=== PATIENT | female | born 1990 | race Caucasian/White ===

== ENCOUNTER 2018-10-01 09:57 | Inpatient (IN) | payer BC ==
[2018-10-01] MEDS ORDERED: Lactated Ringer's 1,000 ML IV ONE (11:32)
[2018-10-01] MEDS: Lactated Ringer's 1,000 ML IV SCH ×2 (11:45→12:46)
[2018-10-01 12:22] LABS: BASO % 0.1 % (0.0-2.0); EOS % 0.2 % (0.0-4.0); HEMOGLOBIN 12.4 g/dL (11.0-16.0); LYMPH # 1.4 K/uL (1.0-4.3); LYMPH % 9.6 % (20.0-40.0); MEAN CELL VOLUME 86.7 fL (81.0-99.0); MEAN CORPUSCULAR HEMOGLOBIN 27.9 pg (27.0-31.0); MEAN CORPUSCULAR HGB CONC 32.2 g/dL (33.0-37.0); MEAN PLATELET VOLUME 10.8 fL (7.2-11.7); NEUT # 11.8 K/uL (1.8-7.0); NEUT % 83.1 % (50.0-75.0); NRBC % 0.1 % (0.0-2.0); PLATELET COUNT 205 K/uL (130-400); RBC 4.45 Mil/uL (3.80-5.20); RED CELL DISTRIBUTION WIDTH 15.6 % (11.5-14.5); WHITE BLOOD COUNT 14.2 K/uL (4.8-10.8)
[2018-10-01 12:25] LABS: SQUAMOUS EPITHIAL 2 /hpf (0-5); URINE BILIRUBIN NEGATIVE (NEGATIVE); URINE BLOOD NEGATIVE (NEGATIVE); URINE CLARITY Clear (Clear); URINE COLOR Yellow (YELLOW); URINE GLUCOSE (UA) NORMAL (Normal); URINE LEUKOCYTE ESTERASE NEG Leu/uL (Negative); URINE PROTEIN NEGATIVE (NEGATIVE); URINE UROBILINOGEN NORMAL mg/dL (0.2-1.0)
[2018-10-01 12:31] LABS: ALB/GLOB RATIO 1.3 (1.0-2.1); ALBUMIN 4.2 g/dL (3.5-5.0); ALT/SGPT 10 U/L (9-52); AST/SGOT 28 U/L (14-36); BLOOD UREA NITROGEN 8 mg/dL (7-17); CALCIUM 9.3 mg/dl (8.6-10.4); GFR NON-AFRICAN AMERICAN > 60
[2018-10-01 12:47] LABS: BANDS 1 % (0-2); LYMPHOCYTE 11 % (20-40); MONOCYTE 5 % (0-10); NEUTROPHIL 83 % (50-75); PLATELET ESTIMATE NORMAL (NORMAL); TOTAL CELLS COUNTED 100
[2018-10-01 12:49] LABS: PLATELET CLUMPS PRESENT
[2018-10-01 13:02] LABS: HEPATITIS B SURFACE AG Negative (NEGATIVE)
--- NOTE | 2018-10-01 14:16 | OBADHP ---
Datetime: 10/01/2018 14:15 Vital Signs Provider: Reviewed; Within Normal Limits Datetime: 10/01/2018 11:20 Admit Comment, IP Provider: Patient is a 28 y/o female with single intrauterine at 40 .1 weeks presenting for evaluation of contractions and associated pain. She began experiencing the co ntractions and pain at 2:00 am this morning that have since become more frequent and intense. She rat es her pain at 7.5/10 currently. Patient reports that she passed vaginal blood tinged jelly like subs tance in the morning. She expresses that she continues to feel the baby moving. Patient denies headch ae, nausea, vomitting, dysuria, and vaginal leakage of fluid/blood. [employer] IN[employer]ER Hx: , LMP 12/24/17, ASHKAN 09/30/18, denies STIs, last pap normal 02/20 Menstrual Hx: menarche 14yo, interval 28 days, duration 7 days, normal flow PMHx: Denies PSHx: Denies: FMHx: Mother and Father alive, history of DM in family. Medications: vitamins Allergies: Shellfish Social: Patient denies tobacco use, patient drinks socially on weekends but has not had any alcoho l since finding out she is , denies illicit drug use Vitals: reviewed, stable and WNL PE: As stated FHM: reviewed, WNL A/P 28 year old female @40.1 wks Admit for expected vaginal delivery Labs ECFM/TOCO IVF NPO GBS status: f/u with Dr. Marin Blood type: B+ Encourage ambulation Discussed with Dr. Alejandro Lincoln PGY-1, Ang Delarosa OMS-III pt seen and examined admit for labor pain magnmetn Pelvic Type - PN: Adequate Extremities - PN: Normal Abdomen - PN: Normal Back - PN: Not Done Breast - PN: Not Done Lungs - PN: Normal Heart - PN: Normal Thyroid - PN: Normal Neurologic - PN: Normal HEENT - PN: Normal General - PN: Normal Presentation-Admit: Vertex FHR - Baseline A Provider: 145 Membranes, Provider: Intact Contraction Comments Provider: irregular Comments, ACOG Physical Exam: Gen: NAD Cardio: RRR, no MGR Pulm: CTA B/L Abd: soft, fundal height 36cm, non tender to palpation, striae, linea nigra : dilated 4cm, effacement 80%, station -2 Ext: no edema, cyanosis Gestation - Est Wks by US: 40.1 Pool Provider: Negative IP Hx Assessment: The History has been Reviewed and is Current IP Chief Complaint: Uterine contractions; Maternal discomfort NICHD Variability Prov Fetus A: Moderate 6-25bpm NICHD Accel Fetus A IP Provider: [id number] FHR Category Provider Fetus A: Category I NICHD Decel Fetus A IP Provider: Early Dilatation, Provider: 4 Effacement, Provider: 80 Station, Provider: -2 Genitourinary Exam: Normal DTRs - PN: Not Done EGA AdmitDate IP: 40.1 IP Adm Impression: Term, intrauterine ; Intact Membranes IP Admit Plan: Admit to unit; Initiate labor protocol
--- NOTE | 2018-10-01 14:23 | OBPN ---
Datetime: 10/01/2018 14:15 IP Progress Impression: Normal progression of labor Membranes, Provider: Ruptured Amniotic Fluid Color, Provider: Meconium, Heavy FHR - Baseline A Provider: 150 Gestation - Est Wks by US: 40.1 Presentation-Admit: Vertex IP Progress Note Comment: pt seen and examined and noted ot have fluid noted on her perienum. Pt [place] aiend c/o ctx pain does not want pain medication. VS VE: 5/80/-2 SROM Meconium noted EFM: 150/mod eli TOCO: q 2-3 min A/P @ 40 + wks in labor, meconium -pt counsled on meconium asprination syndrome, meconium -pt coulsend on progresion of labr -pain managment discussed with patient, declined -will reevalte pt Vital Signs Provider: Reviewed; Within Normal Limits FHR Category Provider Fetus A: Category I NICHD Variability Prov Fetus A: Moderate 6-25bpm Dilatation, Provider: 5 Effacement, Provider: 80 Station, Provider: -2 NICHD Decel Fetus A IP Provider: None Datetime: 10/01/2018 11:20 Pool Provider: Negative Contraction Comments Provider: irregular NICHD Accel Fetus A IP Provider: [id number]
[2018-10-01] MEDS ORDERED: Lidocaine Hydrochloride 5 ML INJ ONE (15:45)
[2018-10-01] MEDS ORDERED: Oxycodone/Acetaminophen 5/325 mg Tab PO PRN ×2 (16:42)
[2018-10-01] MEDS ORDERED: Benzocaine/Menthol 20%-0.5% Topical Spray (60 ml) TOP PRN (16:42)
--- NOTE | 2018-10-01 16:57 | OBDS ---
DELIVERY PERSONNEL Delivery Doctor: Iraida Marin MD Pipe Smoking Machine Offbearer: Marielos Barreto RN MATERNAL INFORMATION Delivery Anesthesia: Local Estimated Blood Loss (ml): 300 Placenta Cultured: Yes Maternal Complications: None RN Comments: liveborn baby boy via nsd Provider Comments: pt was fully dilated and pushing. Atruamtic, spontaneous delivery of head, nuchal cord x1 and on body. Cord loosened. Atruatmic, spontaneo delivery of atnerio followed by posteior sh oulder followed by deliver of body. Both oral and nasal passages of the baby were bulb suctioned. umb ilical cord was clamped and cut. baby handed to mother on abodmen with rn kirstin. cord blood and c ord gases collected and sent x 2. Fundus Firm. Manual removal o fplacenta. Fundus firm, good hemsotai s,periurethral laceration noted and repaired with 3-0 chormic. good hemostaiss, no complicaitns live male cephalic presntation agpars 9,9 ebl 300ml LABOR SUMMARY EDC: 09/30/2018 00:00 No. Babies in Womb: 1 Attempted: No Labor Anesthesia: None LABOR INFORMATION Reason for Induction: Not Applicable Onset of Labor: 10/01/2018 02:00 Complete Dilatation: 10/01/2018 15:20 Oxytocin: N/A Group B Beta Strep: Negative Steroids Given: None Reason Steroids Not Administered: Not Applicable MEMBRANES Membranes Rupture Method: Spontaneous Rupture of Membranes: 10/01/2018 13:30 Length of Rupture (hrs): 2.15 Amniotic Fluid Color: Heavy Meconium Amniotic Fluid Amount: Moderate Amniotic Fluid Odor: None STAGES OF LABOR Stage 1 hrs: 13 Stage 1 min: 20 Stage 2 hrs: 0 Stage 2 min: 19 Stage 3 hrs: 0 Stage 3 min: 13 Total Time in Labor hrs: 13 Total Time in Labor min: 52 VAGINAL DELIVERY Episiotomy: None Laceration Type: Periurethral Other Laceration: periuretheral tear Laceration Repair: Yes Initial Vag Sponge Count: 20 Final Vag Sponge Count: 20 Initial Vag Sharps Count: 1 Final Vag Sharps Count: 1 Sponge Count Correct: Yes Sharps Count Correct: Yes BABY A INFORMATION Delivery Date/Time: 10/01/2018 15:39 Method of Delivery: Vaginal Born in Route : No : N/A Forceps: N/A Vacuum Extraction: N/A Shoulder Dystocia : No SHOULDER DYSTOCIA BABY A Delivery Date/Time: 10/01/2018 15:39 PRESENTATION/POSITION BABY A Presentation: Cephalic Cephalic Presentation: Vertex Vertex Position: Right Occipital Anterior Breech Presentation: N/A PLACENTA INFORMATION BABY A Placenta Delivery Time : 10/01/2018 15:52 Placenta Method of Delivery: Spontaneous Placenta Status: Delivered SCORES BABY A Heart Rate 1 min: >100 bpm Resp Effort 1 min: Good Cry Reflex Irritability 1 min: Cough or Sneeze or Pulls Away Muscle Tone 1 min: Active Motion Color 1 min: Body [place], Extremities Blue Resuscitation Effort 1 min: N/A SCORE 1 MIN: 9 Heart Rate 5 min: >100 bpm Resp Effort 5 min: Good Cry Reflex Irritability 5 min: Cough or Sneeze or Pulls Away Muscle Tone 5 min: Active Motion Color 5 min: Body [place], Extremities Blue Resuscitation Effort 5 min: N/A SCORE 5 MIN: 9 INFORMATION BABY A Gestational Age at Delivery: 40.1 Gestational Status: Term Infant Outcome : Liveborn Infant Condition : Stable Sex: Male IDENTIFICATION/MEDS BABY A ID Band Number: [id number] ID Band Location: Left Leg; Left Arm Sensor Applied: Yes Sensor Number: [id number] Sensor Location : Cord Clamp Vitamin K Given : Not Given Erythromycin Given: Not Given WEIGHT/LENGTH BABY A Birthweight (gms): 3395 Infant Weight (lb): 7 Weight (oz): 8 Length Inches: 19.50 Length cms: 49.5 CORD INFORMATION BABY A Nuchal Cord : Around Neck x1, Tight Nuchal Cord Other: around body x1 tight Cord Blood Taken: Yes Suction: Mouth; Nose ASSESSMENT BABY A Infant Complications: None Physical Findings at Delivery: Within Normal Limits Infant Respirations: Appears Normal Boom Operator/ALS Called : No Infant Care By: josh Transferred To: [facility]
[2018-10-02 08:34] LABS: BASO % 0.2 % (0.0-2.0); EOS # 0.1 K/uL (0.0-0.7); EOS % 0.3 % (0.0-4.0); HEMOGLOBIN 12.6 g/dL (11.0-16.0); LYMPH % 11.2 % (20.0-40.0); MEAN CORPUSCULAR HEMOGLOBIN 27.9 pg (27.0-31.0); MEAN CORPUSCULAR HGB CONC 32.4 g/dL (33.0-37.0); MEAN PLATELET VOLUME 10.4 fL (7.2-11.7); MONO # 1.2 K/uL (0.0-0.8); MONO % 6.9 % (0.0-10.0); NEUT # 14.2 K/uL (1.8-7.0); NEUT % 81.4 % (50.0-75.0); NRBC % 0.1 % (0.0-2.0); RBC 4.53 Mil/uL (3.80-5.20); RED CELL DISTRIBUTION WIDTH 16.2 % (11.5-14.5); WHITE BLOOD COUNT 17.4 K/uL (4.8-10.8)
[2018-10-02] MEDS: Multiple Vitamins Tab PO SCH (09:57)
[2018-10-02 19:56] LABS: BASO % 0.2 % (0.0-2.0); EOS # 0.2 K/uL (0.0-0.7); EOS % 1.5 % (0.0-4.0); HEMOGLOBIN 12.4 g/dL (11.0-16.0); LYMPH # 1.8 K/uL (1.0-4.3); LYMPH % 11.6 % (20.0-40.0); MEAN CELL VOLUME 84.9 fL (81.0-99.0); MEAN CORPUSCULAR HEMOGLOBIN 26.8 pg (27.0-31.0); MEAN CORPUSCULAR HGB CONC 31.6 g/dL (33.0-37.0); MEAN PLATELET VOLUME 9.7 fL (7.2-11.7); MONO % 6.3 % (0.0-10.0); NEUT # 12.4 K/uL (1.8-7.0); NEUT % 80.4 % (50.0-75.0); NRBC % 0.1 % (0.0-2.0); RBC 4.62 Mil/uL (3.80-5.20); RED CELL DISTRIBUTION WIDTH 16.4 % (11.5-14.5); WHITE BLOOD COUNT 15.4 K/uL (4.8-10.8)
[2018-10-03 09:00] LABS: BASO # 0.1 K/uL (0.0-0.2); BASO % 0.4 % (0.0-2.0); EOS # 0.4 K/uL (0.0-0.7); EOS % 3.1 % (0.0-4.0); HEMOGLOBIN 11.9 g/dL (11.0-16.0); LYMPH % 14.6 % (20.0-40.0); MEAN CELL VOLUME 86.3 fL (81.0-99.0); MEAN CORPUSCULAR HEMOGLOBIN 27.3 pg (27.0-31.0); MEAN CORPUSCULAR HGB CONC 31.6 g/dL (33.0-37.0); MEAN PLATELET VOLUME 9.7 fL (7.2-11.7); MONO # 0.8 K/uL (0.0-0.8); NEUT # 10.2 K/uL (1.8-7.0); NEUT % 75.9 % (50.0-75.0); RBC 4.38 Mil/uL (3.80-5.20); RED CELL DISTRIBUTION WIDTH 16.5 % (11.5-14.5); WHITE BLOOD COUNT 13.5 K/uL (4.8-10.8)
[2018-10-03] MEDS: Multiple Vitamins Tab PO SCH (09:21)
--- NOTE | 2018-10-03 11:33 | OBDCSUM ---
Datetime: 10/03/2018 11:31 Discharged to, Provider: Home Follow up at, Provider: dr diaz Disch Instr Activity: Normal activity Disch Instr Diet: Regular Discharge Instructions, Provider: Routine instructions given Discharge Diagnosis, Provider: Term Delivered Discharge Time: 10/03/2018 11:31 Follow up in weeks, Provider: 6 weeks Disch Referrals: None Contraception discussed, Prov: Yes Disch Activity Restrictions: No sexual activity; Nothing in vagina - [place], tampons, douche Contraception after Delivery: Not Planning to Use
--- NOTE | 2018-10-03 11:34 | OBPPN ---
Datetime: 10/03/2018 11:31 PP Pain Prov: Within normal limits PP Nausea Prov: Denies PP Flatus Prov: Yes PP Breasts Prov: Normal PP Heart Prov: Normal PP Lungs Prov: Normal PP Abdomen/Uterus Prov: Normal PP Lochia Prov: Normal PP Vulva/Perineum Prov: Normal PP CVA Tenderness Prov: Normal PP Extremities Prov: Normal PP Plan Prov: Discharge Datetime: 10/02/2018 08:48 PP BM Prov: No PP Comments Phys Exam Prov: Cardiac: RRR no murmurs, gallops, or rubs Pulmonary exam: CTA b/l no W/R/R Abdominal exam: Soft, no tenderness to palpation, no rebound tenderness LE: no peripheral edema present b/l PP Impression Prov: Normal progression PP Progress Note Prov: Patient is a 28 y/o ,0,0,1 female that is status post day 1 that was examined at bedside in the am. Patient was resting comfortably in bed. She currently feels sore and t hat she has been getting decent sleep. She comments that she has been bleeding amoderate amount, stat ing that she has had to change pads 3 times since the delivery on 10/01 and that each time she uses 3 pads. She elaborates that she feels like her b;leeding has progessively been decreasing. She has been able to urinate normally but has been unable to pass stool. she is unaware of whether she has passed gas yet or not. She explains that she intends to breast feed exclusively. She denies headaches, naus ea, vomitting, and diahrrea. She comments that she did feels some shakes and sweating post delivery b ut it went away quickly soon after. Vitals: 97F, 95 BPM, 122/69 mmHg, 20RPM, 98% Assesment: Patient is a 28 y/o ,0,0,1 female that is status post day 1 Plan: Continue present managment Encourage ambulation within the limitations of what the patient can handle Contine pain medictions as needed Continue LR Continue ancef agree iwth above pain amgnet am cbc e ncoaurg brat feeding Vital Signs Provider PP: Reviewed; Within Normal Limits
[2018-10-03] MEDS ORDERED: Influenza Vaccine 60 mcg/0.5 mL SYR (4YR UP) IM ONE (11:45)
[2018-10-03 20:11] VITALS: RESP 18
[2018-10-03 20:13] VITALS: BP 118/79; PULSE 96; TEMP 97.6; O2SAT 98
[2018-10-04] MEDS ORDERED: Influenza Vaccine 60 mcg/0.5 mL SYR (4YR UP) IM ONE (09:22)
== END 2018-10-03 17:10 | disposition home or self-care (01) | DRG 807 ==
LOC: C.EROB 09:57 → C.4D 11:32 → C.4M 18:00
PROVIDERS: ADMIT Obstetrics & Gynecology; ATTEND Obstetrics & Gynecology
PROC: 0HQ9XZZ Repair Perineum Skin, External Approach (ICD-10-PCS; principal; 2018-10-01)
PROC: 10E0XZZ Delivery of Products of Conception, External Approach (ICD-10-PCS; 2018-10-01)
DX: O69.1XX0 Labor and delivery complicated by cord around neck, with compression, not applicable or unspecified (principal); O77.0 Labor and delivery complicated by meconium in amniotic fluid; Z3A.40 40 weeks gestation of pregnancy; O71.82 Other specified trauma to perineum and vulva; Z37.0 Single live birth